=== PATIENT | male | born 1935 | race Caucasian/White ===

== ENCOUNTER 2019-09-11 12:07 | Day surgery (SDC) | payer MEDICARE, OTHER ==
[~2019-09-11] VITALS: Ht 170.2 cm; Wt 71.4 kg
[~2019-09-11 12:07] MED LIST: ALLO300 PO; AMLO10 PO; ASPI81CH PO; ATEN25 PO; DOXY100T53; ENOX40I SC; HYDMOR2 PO; LEVSOD75 PO; LOSA50 PO; NAPR500ERA PO; OXYACE5T PO; SIMV10 PO
[2019-09-11] MEDS ORDERED: Doxycycline Mo100 M1 PO (12:42)
== END 2019-09-11 15:23 | disposition home or self-care (01) ==
LOC: ORSCSDS 12:07
PROVIDERS: Orthopaedic Surgery
PROC: 0LN70ZZ Release Right Hand Tendon, Open Approach (ICD-10-PCS; principal; 2019-09-11 15:30)
PROC: 0JNJ0ZZ Release Right Hand Subcutaneous Tissue and Fascia, Open Approach (ICD-10-PCS; principal; 2019-09-11 15:30)
DX: M72.0 Palmar fascial fibromatosis [Dupuytren] (principal); I10 Essential (primary) hypertension; I25.10 Atherosclerotic heart disease of native coronary artery without angina pectoris; G47.33 Obstructive sleep apnea (adult) (pediatric); Z79.82 Long term (current) use of aspirin; Z79.899 Other long term (current) drug therapy
CPT/HCPCS: 88304; J0171; J0690; J1100; J2370; J2405; J2704; J3010; J7120